=== PATIENT | male | born 1970 | race Hispanic/Latino ===

== ENCOUNTER 2020-10-03 09:59 | Day surgery (SDC) | payer BC, SELFPAY ==
[2020-10-03] MEDS ORDERED: Ringers Lactate 1,000 ML IV ONE (10:41)
[2020-10-03] MEDS ORDERED: LIDOCAINE 1% MPF 30 ML VIAL ONE (11:54)
[2020-10-03] MEDS ORDERED: propofoL 200 MG/20 ML VIAL IV ONE (11:54)
[2020-10-03] MEDS: CEFAZOLIN/SWI 1gm 1 GM/10 ML SYR ONE ×2 (12:10→12:30)
--- NOTE | 2020-10-03 13:11 | ENDO RPT ---
[address], [address] EGD WITH PEG PROCEDURE REPORT EXAM DATE: 10/03/2020 PATIENT NAME: Jeff White MR #: [id number] BIRTHDATE: 1970 ATTENDING: Claudio Joseph DR STATUS: outpatient JOURNEYMAN OPERATOR ASSISTANT: Nabila Mccabe RN and Lori Verdin RN INDICATIONS: The patient is a 49 yr old Male here for an EGD with PEG due to Tonsillar Cancer PROCEDURE PERFORMED: EGD-PEG MEDICATIONS: Per Anesthesia. TOPICAL ANESTHETIC: none CONSENT: The patient understands the risks and benefits of the procedure and understands that these risks include, but are not limited to: sedation, allergic reaction, infection, perforation and/or bleeding. Alternative means of evaluation and treatment include, among others: physical exam, x-rays, and/or surgical intervention. The patient elects to proceed with this endoscopic procedure. DESCRIPTION OF PROCEDURE: During intra-op preparation period all mechanical medical equipment was checked for proper function. Hand hygiene and appropriate measures for infection prevention was taken. After the risks, benefits and alternatives of the procedure were thoroughly explained, Informed consent was verified, confirmed and timeout was successfully executed by the treatment team. The patient was anesthetized with topical anesthesia and the EG-[id number] ([id number]) endoscope was introduced through the mouth and advanced to the bulb of duodenum. The instrument was slowly withdrawn as the mucosa was fully examined. The stomach was then inflated with air, and by a combination of transillumination and manual palpation, the site for the gastrostomy tube placement was selected and marked on the anterior abdominal wall. The skin of the anterior abdomen was surgically prepped and draped with sterile towels. Utilizing strict sterile technique, the selected site was then anesthetized with 1% xylocaine by injection into the skin and subcutaneous tissue. A 1 cm incision was made through the skin and subcutaneous tissue, and the needle/cannula assembly was then passed through the abdominal wall and through the anterior wall of the stomach, maintaining visualization with the endoscope. A snare device previously placed through the instrument channel was then opened and placed around the cannula, the needle was removed, and the insertion wire was passed through the cannula and into the stomach lumen. The snare was then loosened from the cannula, and repositioned to snare the insertion wire. The snare was then pulled up to the endoscope distal tip, and the scope was then withdrawn bringing with it the snare and insertion wire. The insertion wire was then released from the snare, and then loop-attached to the PEG PULL gastrostomy tube. Using the pull technique, the G-tube was then pulled into place by traction on the insertion wire at the abdominal wall end. The G-tube insertion site was then cleansed once again, and the external bolster was placed over the tube to secure it to the abdominal wall. A sterile dressing was then applied, and the procedure terminated. Retroflexion was not performed. The gastroscope was then slowly withdrawn and removed. ADVERSE EVENT: There were no complications. IMPRESSIONS: RECOMMENDATIONS: 1. follow-up: office 2 week(s) 2. avoid NSAIDS 3. begin feeding tomorrow REPEAT EXAM: Claudio Joseph DR eSigned: Claudio Joseph DR 10/03/2020 1:11 PM cc: CPT CODES: ICD9 CODES: PATIENT NAME: Jeff White MR#: [id number]
[2020-10-03] MEDS ORDERED: FENTANYL CITR 100 MCG/2 ML ONE (13:54)
[2020-10-03 15:16] VITALS: TEMP 97.5; O2SAT 96
[2020-10-03 15:18] VITALS: BP 147/75
== END 2020-10-03 14:10 | disposition home or self-care (01) ==
LOC: OR 09:59
PROVIDERS: ATTEND Surgery
PROC: 0DH63UZ Insertion of Feeding Device into Stomach, Percutaneous Approach (ICD-10-PCS; principal; 2020-10-03 11:15)
DX: R13.10 Dysphagia, unspecified (principal); C09.9 Malignant neoplasm of tonsil, unspecified; U07.1 COVID-19
CPT/HCPCS: 86900; 86850; 86901; 43246; U0003; J2704; J3010; J0690; J7120